=== PATIENT | female | born 1935 | race Caucasian/White ===

== ENCOUNTER 2017-05-24 05:56 | Day surgery (SDC) | payer OTHER, BC ==
[2017-05-19 17:13] VITALS: BMI 24.5
[2017-05-24] MEDS: GENTAMICIN SULFATE 0.3% OPHTHALMIC (EYE DROPS) 5ML BOTTLE ONE ×5 (06:50→07:10)
[2017-05-24] MEDS: CYCLOPENTOLATE HCL 1% OPHTH SOLN 2 ML BOTTLE ONE ×5 (06:50→07:10)
[2017-05-24] MEDS: FLURBIPROFEN 0.03% OPHTH SOLN 2.5 ML BOTTLE ONE ×4 (06:50→07:05)
[2017-05-24] MEDS: PHENYLEPHRINE 2.5% OPHTH SOLN 15 ML BOTTLE ONE ×5 (06:50→07:10)
[2017-05-24] MEDS: TROPICAMIDE 1% OPHTH SOLN 15 ML BOTTLE ONE ×5 (06:50→07:10)
[2017-05-24] MEDS ORDERED: FLURBIPROFEN 0.03% OPHTH SOLN 2.5 ML BOTTLE OD ONE (07:10)
[2017-05-24] MEDS ORDERED: BETAXOLOL HCL 0.25% OPHTHALMIC 10 ML DROPSBTL ONE (07:10)
[2017-05-24] MEDS ORDERED: TETRACAINE 0.5% OPHTH SOLN 2 ML BOTTLE ONE (07:11)
[2017-05-24] MEDS ORDERED: BUPIVACAINE HCL/PF 0.5% (5MG/ML) 10 ML VIAL ONE (07:11)
[2017-05-24] MEDS ORDERED: LIDOCAINE HCL 2% JELLY 10 ML CARTRIDGE ONE (07:11)
[2017-05-24] MEDS ORDERED: LIDOCAINE HCL/PF 2% SDV 5ML VIAL ONE (07:11)
[2017-05-24] MEDS ORDERED: POVIDONE-IODINE 5% OPHTHALMIC PREP 30 ML SOLUTION ONE (07:11)
[2017-05-24] MEDS ORDERED: ACETYLCHOLINE 1:100 INTRA-OCUL 20 MG/2 ML KIT ONE (07:11)
[2017-05-24] MEDS ORDERED: NEO/POLYMYX B SULF/DEXAMETH OPHTHALMIC 5ML BOTTLE ONE (07:11)
[2017-05-24] MEDS ORDERED: GENTAMICIN SULFATE 0.3% OPHTHALMIC (EYE DROPS) 5ML BOTTLE OD SCH (08:00)
[2017-05-24] MEDS ORDERED: PHENYLEPHRINE 2.5% OPHTH SOLN 15 ML BOTTLE OD SCH (08:00)
[2017-05-24] MEDS ORDERED: TROPICAMIDE 1% OPHTH SOLN 15 ML BOTTLE OD SCH (08:00)
[2017-05-24] MEDS ORDERED: CYCLOPENTOLATE HCL 1% OPHTH SOLN 2 ML BOTTLE OD SCH (08:00)
[2017-05-24] MEDS ORDERED: FLURBIPROFEN 0.03% OPHTH SOLN 2.5 ML BOTTLE OD SCH (08:00)
[2017-05-24] MEDS ORDERED: PROPOFOL 20 ML ONE (08:04)
[2017-05-24] MEDS ORDERED: MIDAZOLAM HCL 2 MG/2 ML SINGLE DOSE VIAL ONE (08:05)
[2017-05-24] MEDS ORDERED: TROPICAMIDE 1% OPHTH SOLN 15 ML BOTTLE OP SCH (09:00)
[2017-05-24] MEDS ORDERED: FLURBIPROFEN 0.03% OPHTH SOLN 2.5 ML BOTTLE OP SCH (09:00)
[2017-05-24] MEDS ORDERED: GENTAMICIN SULFATE 0.3% OPHTHALMIC (EYE DROPS) 5ML BOTTLE OP SCH (09:00)
[2017-05-24] MEDS ORDERED: CYCLOPENTOLATE HCL 1% OPHTH SOLN 2 ML BOTTLE OP SCH (09:00)
[2017-05-24] MEDS ORDERED: PHENYLEPHRINE 2.5% OPHTH SOLN 15 ML BOTTLE OP SCH (09:00)
[2017-05-24 09:51] VITALS: BP 135/69; PULSE 70; TEMP 98.1
--- NOTE | 2017-05-24 14:47 | OP ---
DATE OF OPERATION: 05/24/2017 PREOPERATIVE DIAGNOSIS: Cataract, right eye. POSTOPERATIVE DIAGNOSIS: Cataract, right eye. PROCEDURE: Cataract extraction via phacoemulsification with insertion of posterior chamber lens implant, right eye. ANESTHESIA: Regional with sedation. SURGEON: Giancarlo Montemayor MD BEAUTY OPERATOR APPRENTICE: Yashira Marie MD ESTIMATED BLOOD LOSS: Less than 1 mL. SPECIMENS: None. COMPLICATIONS: None. DESCRIPTION OF PROCEDURE: The patient was identified in the holding area. After all risks, benefits, and alternatives were explained to the patient, informed consent was obtained. The right eye was marked with a marking pen. The patient entered the operating room on an eye stretcher. After a formal timeout was performed, a 3-mL injection of equal parts 2% lidocaine with epinephrine and 0.5% Marcaine was given around the right eye. The right eye was then prepped and draped in the usual sterile fashion. An eyelid speculum was placed beneath the eyelids of the right eye. A superotemporal paracentesis incision was created using 15-degree blade. Viscoelastic was then injected into the anterior chamber. A 2.4-mm keratome blade was then used to make an inferotemporal incision. A 360-degree, continuous curvilinear capsulorrhexis was then created using bent cystotome and Utrata forceps. Hydrodissection was performed using balanced saline solution on a cannula. Phacoemulsification was introduced to disassemble and remove the nucleus in its entirety. Irrigation/aspiration was then used to remove any remaining cortical material from the eye. The capsular bag was then refilled using viscoelastic. An Dick model SN60WF with a power of 28.0 diopters, serial number [id number], was inspected and found to be defect free and injected into the capsular bag. Irrigation/aspiration was then used to remove any remaining viscoelastic from the eye. The anterior chamber was refilled using balanced saline solution. Intracameral injections of Miochol and Miostat were then given to the right eye, and the pupil came down and was round. All wounds were hydrated with balanced saline solution and noted to be watertight. The anterior chamber was deep. There was a red reflex present. The eye had an adequate pressure, and the lens was perfectly centered in the capsular bag. The topical antibiotic eye drops and ointment were then administered to the right eye. The eyelid speculum was removed from the right eye. The right eye was patched and shielded. The patient tolerated the procedure well and left the operating room in stable condition to follow up in the eye clinic tomorrow morning at 9:00. GIANCARLO MONTEMAYOR M.D. [id number]
== END 2017-05-24 10:03 | disposition home or self-care (01) ==
LOC: FASU 05:56
PROVIDERS: ATTEND Ophthalmology
PROC: 08RK3JZ Replacement of Left Lens with Synthetic Substitute, Percutaneous Approach (ICD-10-PCS; principal; 2017-05-24 08:21)
DX: H26.9 Unspecified cataract (principal)

== ENCOUNTER 2017-06-07 06:20 | Day surgery (SDC) | payer OTHER, BC ==
[2017-06-03 11:19] VITALS: BMI 24.5
[2017-06-07] MEDS: TROPICAMIDE 1% OPHTH SOLN 15 ML BOTTLE ONE ×5 (07:25→07:45)
[2017-06-07] MEDS: FLURBIPROFEN 0.03% OPHTH SOLN 2.5 ML BOTTLE ONE ×5 (07:25→07:45)
[2017-06-07] MEDS: PHENYLEPHRINE 2.5% OPHTH SOLN 15 ML BOTTLE ONE ×5 (07:25→07:45)
[2017-06-07] MEDS: CYCLOPENTOLATE HCL 1% OPHTH SOLN 2 ML BOTTLE ONE ×5 (07:25→07:45)
[2017-06-07] MEDS: GENTAMICIN SULFATE 0.3% OPHTHALMIC (EYE DROPS) 5ML BOTTLE ONE ×5 (07:25→07:45)
[2017-06-07] MEDS ORDERED: BETAXOLOL HCL 0.25% OPHTHALMIC 10 ML DROPSBTL ONE (07:41)
[2017-06-07] MEDS ORDERED: BACITRACIN/POLYMYXIN OPH OINT 3.5 GM TUBE ONE (07:41)
[2017-06-07] MEDS ORDERED: TETRACAINE 0.5% OPHTH SOLN 2 ML BOTTLE ONE (07:41)
[2017-06-07] MEDS ORDERED: LIDOCAINE HCL/PF 2% SDV 5ML VIAL ONE (07:41)
[2017-06-07] MEDS ORDERED: ACETYLCHOLINE 1:100 INTRA-OCUL 20 MG/2 ML KIT ONE (07:42)
[2017-06-07] MEDS ORDERED: BUPIVACAINE HCL/PF 0.5% (5MG/ML) 10 ML VIAL ONE (07:42)
[2017-06-07] MEDS ORDERED: NEO/POLYMYX B SULF/DEXAMETH OPHTHALMIC 5ML BOTTLE ONE ×2 (07:42→09:04)
[2017-06-07] MEDS ORDERED: EPINEPHrine 1:1,000 1 MG/1 ML - 30ML VIAL (INJECTION) ONE (07:51)
[2017-06-07] MEDS ORDERED: PROPOFOL 20 ML ONE ×3 (07:55)
[2017-06-07] MEDS ORDERED: EPINEPHrine/PF 1 MG/1 ML (1:1,000) AMPULE ONE (07:55)
[2017-06-07] MEDS ORDERED: SUCCINYLCHOLINE CHLORIDE 200 MG/10 ML VIAL ONE (07:55)
[2017-06-07] MEDS ORDERED: ePHEDrine SULFATE 50 MG/1 ML AMPULE ONE (07:56)
[2017-06-07] MEDS ORDERED: MIDAZOLAM HCL 2 MG/2 ML SINGLE DOSE VIAL ONE (08:11)
[2017-06-07] MEDS ORDERED: POVIDONE-IODINE 5% OPHTHALMIC PREP 30 ML SOLUTION ONE (09:04)
[2017-06-07] MEDS ORDERED: LACTATED RINGERS SOLUTION 1,000 ML IV SCH (09:15)
[2017-06-07] MEDS ORDERED: ACETAMINOPHEN 325 MG TABLET (FP) PO PRN ×2 (09:24→09:57)
--- NOTE | 2017-06-07 09:42 | OP ---
DATE OF OPERATION: 06/07/2017 PREOPERATIVE DIAGNOSIS: Cataract, left eye. POSTOPERATIVE DIAGNOSIS: Cataract, left eye. PROCEDURE PERFORMED: Cataract extraction via phacoemulsification with insertion of posterior chamber lens implant, left eye. SURGEON: Giancarlo Montemayor M.D. FAN BLADE TRUER: Yashira Marie M.D. ANESTHESIA: Regional sedation. ESTIMATED BLOOD LOSS: Less than 1 mL. COMPLICATIONS: None. SPECIMENS: None. DESCRIPTION OF PROCEDURE: The patient was identified in the holding area. After all risks, benefits and alternatives were explained to the patient, informed consent was obtained. The left eye was marked with a marking pen. The patient entered the operating room on an Eye Stretcher. After a formal time-out was performed, a 3-mL injection of equal parts of 2% lidocaine with epinephrine and 0.5% Marcaine was given around the left eye. The left eye was then prepped and draped in the usual sterile fashion. An eyelid speculum was placed between the eyelids of the left eye. An infratemporal incision was created using a 15-degree blade. Viscoelastic was then injected into the anterior chamber. A 2.5 keratome blade was then used to make a superotemporal incision. A 360-degree continuous curvilinear capsulorrhexis was then created using a bent cystotome and Utrata forceps. Hydrodissection was performed using bacitracin-saline solution on a cannula. Phacoemulsification was introduced removal of the nucleus in its entirety. Irrigation/aspiration was then used to remove any remaining cortical material from the eye. An Dick model SN60WF with a power of 27.0 diopters, serial number [id number], was inspected and found to be defect free. The capsular bag was then filled with viscoelastic. The lens was inspected again and found to be defect free, and injected into the capsular bag. Irrigation-aspiration was then used to remove any remaining viscoelastic from the eye. The anterior chamber was then reformed using bacitracin-saline solution. Intracameral injections of Miochol and Monistat were then administered, and the pupil came down and was round. All wounds were hydrated with bacitracin-saline solution and noted to be watertight. Upon inspection, the lens was perfectly centered in the capsular bag. There was a red reflex present. The anterior chamber was deep and the eye had adequate pressure. The eye was given topical antibiotic eye drops and ointment. The speculum was then removed from the left eye. The left eye was patched and shielded. The patient tolerated the procedure well and left the operating room in stable condition. She is to follow up with me in the clinic tomorrow morning at 9 o'clock. GIANCARLO MONTEMAYOR M.D. [id number]
[2017-06-07 09:49] VITALS: BP 135/67; PULSE 61; TEMP 98
[2017-06-07] MEDS ORDERED: ONDANSETRON 4 MG/2 ML VIAL IVPUSH PRN (09:59)
== END 2017-06-07 10:00 | disposition home or self-care (01) ==
LOC: FASU 06:20
PROVIDERS: ATTEND Ophthalmology
PROC: 08RK3JZ Replacement of Left Lens with Synthetic Substitute, Percutaneous Approach (ICD-10-PCS; principal; 2017-06-07 08:36)
DX: H26.8 Other specified cataract (principal)

== ENCOUNTER 2022-10-05 04:11 | Inpatient (IN) | payer OTHER ==
[2022-10-05] MEDS ORDERED: ACETAMINOPHEN 1000 MG/100 ML BAG IVPB ONE ×2 (05:45→18:33)
[2022-10-05] MEDS ORDERED: FAMOTIDINE 20 MG/50 ML IVPB 20 MG/50 ML MG IVPB ONE ×2 (05:45→06:11)
[2022-10-05] MEDS ORDERED: ACETAMINOPHEN INJECTION 100 ML IVPB ONE ×2 (06:10→20:08)
[2022-10-05 06:21] LABS: BASO % 0.1 % (0-2.0); EOS % 0.1 % (0-4.5); HEMATOCRIT 36.7 % (32.4-45.2); HEMOGLOBIN 12.6 GM/dL (10.7-15.3); MCH 28.5 pg (25.7-33.7); MCHC 34.2 g/dl (32.0-36.0); MEAN CELL VOLUME 83.2 fl (80-96); MEAN PLT VOLUME 7.3 fl (7.5-11.1); MONO % 4.5 % (3.8-10.2); NEUT % 79.3 % (42.8-82.8); PLATELET COUNT 255 10^3/uL (134-434); RBC 4.42 M/mm3 (3.60-5.2); RDW 13.6 % (11.6-15.6); WHITE BLOOD COUNT 7.6 K/mm3 (4.0-10.0)
[2022-10-05 06:27] LABS: INR 1.18 (0.83-1.09); PROTHROMBIN TIME (PATIENT) 13.6 SEC (9.7-13.0)
[2022-10-05 06:41] LABS: ALBUMIN 2.7 g/dl (3.4-5.0); CALCIUM 8.7 mg/dL (8.5-10.1)
[2022-10-05 06:42] LABS: BLOOD UREA NITROGEN 9.1 mg/dL (7-18); MAGNESIUM 1.9 mg/dL (1.8-2.4)
[2022-10-05 06:42] LABS: EPI CELLS 2 /uL (0-25.1); HYALINE CASTS 0 /uL (0-3.1); PH,URINE 7.5 (5.0-8.0); URINE APPEARANCE CLEAR; URINE BACTERIA 56 /uL (0-1359); URINE BILIRUBIN NEGATIVE (NEGATIVE); URINE COLOR YELLOW; URINE GLUCOSE (UA) NEGATIVE (NEGATIVE); URINE KETONE TRACE (NEGATIVE); URINE LEUK ESTERASE TRACE (NEGATIVE); URINE NITRITE NEGATIVE (NEGATIVE); URINE PROTEIN TRACE (NEGATIVE); URINE RBC 78 /uL (0-23.9); URINE UROBILINOGEN 0.2 mg/dL (0.2-1.0); URINE WBC 4 /uL (0-25.8)
[2022-10-05] MEDS ORDERED: SODIUM CHLORIDE 0.9% 500 ML INFUS.BAG IV ONE (06:43)
[2022-10-05 06:44] LABS: CREATININE 0.6 mg/dL (0.55-1.3)
[2022-10-05 06:46] LABS: BILIRUBIN,TOTAL 0.7 mg/dL (0.2-1); TOT PROT 6.9 g/dl (6.4-8.2)
[2022-10-05 08:18] LABS: URINE CRYSTALS NEGATIVE /hpf
[2022-10-05] MEDS ORDERED: ACETAMINOPHEN 500 MG TABLET (FP) PO PRN (22:40)
[2022-10-06 08:13] LABS: BASO % 0.8 % (0-2.0); HEMATOCRIT 30.1 % (32.4-45.2); HEMOGLOBIN 10.1 GM/dL (10.7-15.3); LYMPH % 40.3 % (8-40); MCH 28.2 pg (25.7-33.7); MCHC 33.6 g/dl (32.0-36.0); MEAN CELL VOLUME 83.8 fl (80-96); MEAN PLT VOLUME 7.3 fl (7.5-11.1); MONO % 7.5 % (3.8-10.2); NEUT % 49.4 % (42.8-82.8); PLATELET COUNT 219 10^3/uL (134-434); RBC 3.59 M/mm3 (3.60-5.2); RDW 13.4 % (11.6-15.6); WHITE BLOOD COUNT 4.9 K/mm3 (4.0-10.0)
[2022-10-06 08:27] LABS: BLOOD UREA NITROGEN 6.4 mg/dL (7-18); CALCIUM 8.3 mg/dL (8.5-10.1)
[2022-10-06 08:29] LABS: CREATININE 0.5 mg/dL (0.55-1.3); PHOSPHOROUS 3.3 mg/dL (2.5-4.9)
[2022-10-06 08:30] LABS: BILIRUBIN,TOTAL 0.4 mg/dL (0.2-1); TOT PROT 5.3 g/dl (6.4-8.2)
[2022-10-06 08:34] LABS: ALBUMIN 2.1 g/dl (3.4-5.0)
[2022-10-06] MEDS: ENOXAPARIN NA (PORCINE) 40 MG/0.4 ML DISP.SYRIN SQ SCH (10:41)
[2022-10-06] MEDS ORDERED: MECLIZINE HCL 12.5 MG TABLET PO PRN (11:08)
[2022-10-06] MEDS: SODIUM CHLORIDE 1,000 ML IV SCH ×2 (15:23→20:29)
[2022-10-06] MEDS: POLYETHYLENE GLYCOL (HEALTHYLAX) 3350 17 GM PACKET PO SCH ×2 (15:23→21:44)
[2022-10-06] MEDS ORDERED: ACETAMINOPHEN INJECTION 100 ML IVPB ONE (18:38)
[2022-10-06] MEDS: ACETAMINOPHEN 325 MG TABLET (FP) PO PRN (18:41)
[2022-10-06] MEDS ORDERED: ACETAMINOPHEN 325 MG TABLET (FP) ONE (18:45)
[2022-10-06] MEDS: ATORVASTATIN CA 20 MG TABLET (FP) PO SCH (21:44)
[2022-10-07] MEDS: ACETAMINOPHEN 325 MG TABLET (FP) PO PRN (02:52)
[2022-10-07] MEDS: SODIUM CHLORIDE 1,000 ML IV SCH (02:53)
[2022-10-07] MEDS ORDERED: ACETAMINOPHEN 1000 MG/100 ML BAG IVPB ONE (09:25)
[2022-10-07] MEDS: ASPIRIN COATED 81 MG TABLET.EC PO SCH (09:48)
[2022-10-07] MEDS: ENOXAPARIN NA (PORCINE) 40 MG/0.4 ML DISP.SYRIN SQ SCH (09:50)
[2022-10-07] MEDS: POLYETHYLENE GLYCOL (HEALTHYLAX) 3350 17 GM PACKET PO SCH ×2 (09:50→22:19)
[2022-10-07 14:51] VITALS: BMI 19.3
[2022-10-07] MEDS: PANTOPRAZOLE 20 MG TABLET PO SCH (16:55)
[2022-10-07] MEDS: ATORVASTATIN CA 20 MG TABLET (FP) PO SCH (22:19)
[2022-10-08 10:09] LABS: HEMATOCRIT 34.8 % (32.4-45.2); HEMOGLOBIN 11.7 GM/dL (10.7-15.3); MCH 28.1 pg (25.7-33.7); MCHC 33.6 g/dl (32.0-36.0); MEAN CELL VOLUME 83.4 fl (80-96); MEAN PLT VOLUME 7.1 fl (7.5-11.1); PLATELET COUNT 286 10^3/uL (134-434); RBC 4.18 M/mm3 (3.60-5.2); RDW 13.6 % (11.6-15.6); WHITE BLOOD COUNT 5.6 K/mm3 (4.0-10.0)
[2022-10-08 10:31] LABS: BLOOD UREA NITROGEN 10.6 mg/dL (7-18); CALCIUM 8.5 mg/dL (8.5-10.1)
[2022-10-08 10:34] LABS: CREATININE 0.6 mg/dL (0.55-1.3)
[2022-10-08 10:52] VITALS: RESP 18
[2022-10-08] MEDS: ASPIRIN COATED 81 MG TABLET.EC PO SCH (11:27)
[2022-10-08] MEDS: PANTOPRAZOLE 20 MG TABLET PO SCH (11:27)
[2022-10-08] MEDS: POLYETHYLENE GLYCOL (HEALTHYLAX) 3350 17 GM PACKET PO SCH ×2 (11:27→21:31)
[2022-10-08] MEDS: SODIUM CHLORIDE 1,000 ML IV SCH (15:38)
[2022-10-08] MEDS: ATORVASTATIN CA 20 MG TABLET (FP) PO SCH (21:31)
[2022-10-09] MEDS: SODIUM CHLORIDE 1,000 ML IV SCH (06:13)
[2022-10-09] MEDS: PANTOPRAZOLE 20 MG TABLET PO SCH (09:48)
[2022-10-09] MEDS: ENOXAPARIN NA (PORCINE) 40 MG/0.4 ML DISP.SYRIN SQ SCH (09:48)
[2022-10-09] MEDS: ASPIRIN COATED 81 MG TABLET.EC PO SCH (09:48)
[2022-10-09] MEDS: POLYETHYLENE GLYCOL (HEALTHYLAX) 3350 17 GM PACKET PO SCH (09:49)
[2022-10-09 11:23] LABS: CALCIUM 8.5 mg/dL (8.5-10.1)
[2022-10-09 11:24] LABS: BLOOD UREA NITROGEN 10.7 mg/dL (7-18)
[2022-10-09 11:27] LABS: CREATININE 0.8 mg/dL (0.55-1.3)
[2022-10-09 18:40] VITALS: BP 126/50; PULSE 78; TEMP 97
== END 2022-10-09 11:41 | disposition home or self-care (01) | DRG 384 ==
LOC: JER 04:11 → JERBED 16:00 → J5S 10-06 19:20
PROVIDERS: ADMIT Internal Medicine; ATTEND Internal Medicine
PROC: 0DB98ZX Excision of Duodenum, Via Natural or Artificial Opening Endoscopic, Diagnostic (ICD-10-PCS; 2022-10-08)
PROC: 0DB68ZX Excision of Stomach, Via Natural or Artificial Opening Endoscopic, Diagnostic (ICD-10-PCS; principal; 2022-10-08 11:45)
DX: K25.9 Gastric ulcer, unspecified as acute or chronic, without hemorrhage or perforation (principal); E87.1 Hypo-osmolality and hyponatremia; K55.1 Chronic vascular disorders of intestine; K26.9 Duodenal ulcer, unspecified as acute or chronic, without hemorrhage or perforation; R10.9 Unspecified abdominal pain; R19.7 Diarrhea, unspecified; K44.9 Diaphragmatic hernia without obstruction or gangrene; K29.50 Unspecified chronic gastritis without bleeding; K21.00 Gastro-esophageal reflux disease with esophagitis, without bleeding; E78.5 Hyperlipidemia, unspecified
CPT/HCPCS: 0241U-QW; 36415; 71045-TC-FY; 74174-TC; 74182-TC; 80048; 80053; 81003; 83605; 83690; 83735; 84100; 84484; 85025; 85027; 85610; 85730; 86850; 86900; 86901; 87086; 87186; 88305-TC; 93005; 93010; 97116-GP; 97162-GP; 99285-25; A9579; Q9967

== ENCOUNTER 2023-01-13 04:39 | Day surgery (SDC) | payer OTHER ==
[2023-01-10 15:40] VITALS: BMI 23.8
[2023-01-13 12:30] VITALS: RESP 20; TEMP 97.3
[2023-01-13 13:13] VITALS: BP 138/52; PULSE 71
== END 2023-01-13 13:48 | disposition home or self-care (01) ==
LOC: JASU-ENDO 04:39
PROVIDERS: ATTEND Internal Medicine Gastroenterology
PROC: 0DJD8ZZ Inspection of Lower Intestinal Tract, Via Natural or Artificial Opening Endoscopic (ICD-10-PCS; 2023-01-13)
PROC: 0DBM8ZX Excision of Descending Colon, Via Natural or Artificial Opening Endoscopic, Diagnostic (ICD-10-PCS; principal; 2023-01-13 12:30)
DX: C18.6 Malignant neoplasm of descending colon (principal); Z80.0 Family history of malignant neoplasm of digestive organs
CPT/HCPCS: 88305-TC

== ENCOUNTER 2024-10-04 08:44 | Inpatient (IN) | payer OTHER ==
[2024-10-04 10:06] LABS: BASO % 0.3 % (0-2.0); EOS % 0.1 % (0-4.5); HEMATOCRIT 27.6 % (32.4-45.2); HEMOGLOBIN 8.3 GM/dL (10.7-15.3); LYMPH % 21.9 % (8-40); MCH 22.9 pg (25.7-33.7); MCHC 30.1 g/dl (32.0-36.0); MEAN CELL VOLUME 76.3 fl (80-96); MONO % 5.3 % (3.8-10.2); NEUT % 72.4 % (42.8-82.8); PLATELET COUNT 292 10^3/uL (134-434); RBC 3.62 M/mm3 (3.60-5.2); RDW 20.9 % (11.6-15.6); WHITE BLOOD COUNT 7.3 K/mm3 (4.0-10.0)
[2024-10-04 10:15] LABS: INR 1.12 (0.83-1.09); PROTHROMBIN TIME (PATIENT) 12.6 SEC (9.7-13.0)
[2024-10-04 10:17] LABS: ACTIVATED PTT 26.8 SECONDS (25.2-36.5)
[2024-10-04 10:38] LABS: POTASSIUM 5.2 mmol/L (3.5-5.1)
[2024-10-04 10:40] LABS: CALCIUM 8.7 mg/dL (8.5-10.1)
[2024-10-04 10:41] LABS: ALBUMIN 2.2 g/dl (3.4-5.0); BLOOD UREA NITROGEN 23.7 mg/dL (7-18); MAGNESIUM 2.4 mg/dL (1.8-2.4)
[2024-10-04 10:44] LABS: CREATININE 0.9 mg/dL (0.55-1.3)
[2024-10-04 10:45] LABS: BILIRUBIN,TOTAL 0.4 mg/dL (0.2-1)
[2024-10-04 10:46] LABS: TOT PROT 7.9 g/dl (6.4-8.2)
[2024-10-04 11:16] LABS: ANISOCYTOSIS 2+; MACROCYTOSIS 1+
[2024-10-04 13:45] LABS: POTASSIUM 4.3 mmol/L (3.5-5.1)
[2024-10-04 13:47] LABS: BLOOD UREA NITROGEN 20.4 mg/dL (7-18); CALCIUM 8.4 mg/dL (8.5-10.1)
[2024-10-04 13:51] LABS: CREATININE 0.7 mg/dL (0.55-1.3)
[2024-10-04 13:52] LABS: BILIRUBIN,TOTAL 0.3 mg/dL (0.2-1); TOT PROT 7.3 g/dl (6.4-8.2)
[2024-10-04] MEDS ORDERED: MECLIZINE HCL 12.5 MG TABLET PO PRN (15:09)
[2024-10-04] MEDS: ASPIRIN 81 MG CHEWABLE TABLETS PO SCH (17:00)
[2024-10-04 17:01] VITALS: BMI 19.2
[2024-10-04 18:25] LABS: EPI CELLS 4 /uL (0-25.1); HYALINE CASTS 0 /uL (0-3.1); URINE APPEARANCE CLEAR; URINE BACTERIA 2 /uL (0-1359); URINE BILIRUBIN NEGATIVE (NEGATIVE); URINE COLOR YELLOW; URINE GLUCOSE (UA) NEGATIVE (NEGATIVE); URINE KETONE NEGATIVE (NEGATIVE); URINE LEUK ESTERASE NEGATIVE (NEGATIVE); URINE NITRITE NEGATIVE (NEGATIVE); URINE PROTEIN 1+ (NEGATIVE); URINE RBC 24 /uL (0-23.9); URINE WBC 9 /uL (0-25.8)
[2024-10-04] MEDS ORDERED: ATORVASTATIN CA 20 MG TABLET (FP) PO SCH (22:00)
[2024-10-04] MEDS: ATORVASTATIN CA 40 MG TABLET (FP) PO SCH (22:32)
[2024-10-05] MEDS ORDERED: MECLIZINE HCL 12.5 MG TABLET PO PRN (07:44)
[2024-10-05 07:57] LABS: BASO % 0.3 % (0-2.0); EOS % 0.4 % (0-4.5); HEMATOCRIT 27.9 % (32.4-45.2); HEMOGLOBIN 8.5 GM/dL (10.7-15.3); LYMPH % 31.6 % (8-40); MCHC 30.4 g/dl (32.0-36.0); MEAN CELL VOLUME 75.6 fl (80-96); MEAN PLT VOLUME 6.7 fl (7.5-11.1); MONO % 5.6 % (3.8-10.2); NEUT % 62.1 % (42.8-82.8); PLATELET COUNT 296 10^3/uL (134-434); RBC 3.69 M/mm3 (3.60-5.2); RDW 20.9 % (11.6-15.6); WHITE BLOOD COUNT 6.1 K/mm3 (4.0-10.0)
[2024-10-05 08:04] LABS: POTASSIUM 3.9 mmol/L (3.5-5.1)
[2024-10-05 08:14] LABS: CALCIUM 8.4 mg/dL (8.5-10.1)
[2024-10-05 08:15] LABS: ALBUMIN 2.1 g/dl (3.4-5.0); BLOOD UREA NITROGEN 14.1 mg/dL (7-18); MAGNESIUM 2.2 mg/dL (1.8-2.4)
[2024-10-05 08:16] LABS: BILIRUBIN,TOTAL 0.5 mg/dL (0.2-1); TOT PROT 7.5 g/dl (6.4-8.2)
[2024-10-05 08:17] LABS: CREATININE 0.6 mg/dL (0.55-1.3)
[2024-10-05] MEDS ORDERED: ENOXAPARIN NA (PORCINE) 40 MG/0.4 ML DISP.SYRIN SQ SCH (10:00)
[2024-10-05] MEDS ORDERED: MULTIVITAMINS (DAILY MVI) TABLET (FP) PO SCH (10:00)
[2024-10-05] MEDS: MULTIVITAMINS (DAILY MVI) TABLET (FP) PO SCH (11:10)
[2024-10-05] MEDS: ASPIRIN 81 MG CHEWABLE TABLETS PO SCH (11:10)
[2024-10-05] MEDS: PANTOPRAZOLE 40 MG TABLET PO SCH (11:10)
[2024-10-05] MEDS: ENOXAPARIN NA (PORCINE) 40 MG/0.4 ML DISP.SYRIN SQ SCH (11:11)
[2024-10-05] MEDS: QUEtiapine FUMARATE 25 MG TABLET PO SCH (21:19)
[2024-10-05] MEDS: ATORVASTATIN CA 40 MG TABLET (FP) PO SCH (21:19)
[2024-10-06 07:20] LABS: POTASSIUM 3.9 mmol/L (3.5-5.1)
[2024-10-06 07:21] LABS: BASO % 0.3 % (0-2.0); EOS % 0.6 % (0-4.5); HEMATOCRIT 26.7 % (32.4-45.2); HEMOGLOBIN 8.1 GM/dL (10.7-15.3); MCH 22.9 pg (25.7-33.7); MCHC 30.3 g/dl (32.0-36.0); MEAN CELL VOLUME 75.6 fl (80-96); MEAN PLT VOLUME 6.8 fl (7.5-11.1); NEUT % 62.1 % (42.8-82.8); PLATELET COUNT 285 10^3/uL (134-434); RBC 3.53 M/mm3 (3.60-5.2); WHITE BLOOD COUNT 8.1 K/mm3 (4.0-10.0)
[2024-10-06 07:23] LABS: ALBUMIN 2.1 g/dl (3.4-5.0); CALCIUM 8.5 mg/dL (8.5-10.1)
[2024-10-06 07:26] LABS: CREATININE 0.8 mg/dL (0.55-1.3)
[2024-10-06 07:29] LABS: BILIRUBIN,TOTAL 0.6 mg/dL (0.2-1); TOT PROT 7.2 g/dl (6.4-8.2)
[2024-10-06] MEDS: FERROUS SO4 325 MG TABLET (FP) PO SCH ×2 (09:38→21:23)
[2024-10-06] MEDS: IRON SUCROSE INJECTION 200 MG in SODIUM CHLORIDE 100 ML IVPB ONE (17:00)
[2024-10-06] MEDS ORDERED: ACETAMINOPHEN INJECTION 100 ML ONE (18:33)
[2024-10-06] MEDS: ACETAMINOPHEN 1000 MG/100 ML BAG IVPB ONE (18:43)
[2024-10-06] MEDS: SODIUM CHLORIDE 500 ML IV STA (18:44)
[2024-10-06] MEDS: DEXTROSE 5%-NORMAL SALINE 1,000 ML IV SCH (19:59)
[2024-10-06] MEDS: PANTOPRAZOLE SODIUM 40 MG VIAL IVPUSH ONE (19:59)
[2024-10-06] MEDS: SENNOSIDES 8.6MG TABLET (FP) PO SCH (21:23)
[2024-10-06 21:35] LABS: HEMATOCRIT 22.1 % (32.4-45.2); MCH 22.9 pg (25.7-33.7); MCHC 30.6 g/dl (32.0-36.0); MEAN CELL VOLUME 74.7 fl (80-96); MEAN PLT VOLUME 6.6 fl (7.5-11.1); PLATELET COUNT 259 10^3/uL (134-434); RBC 2.96 M/mm3 (3.60-5.2); RDW 20.9 % (11.6-15.6); WHITE BLOOD COUNT 6.9 K/mm3 (4.0-10.0)
[2024-10-06 21:41] LABS: HEMOGLOBIN 6.8 GM/dL (10.7-15.3)
[2024-10-07 07:37] LABS: POTASSIUM 3.7 mmol/L (3.5-5.1)
[2024-10-07 07:43] LABS: CALCIUM 7.8 mg/dL (8.5-10.1)
[2024-10-07 07:44] LABS: BLOOD UREA NITROGEN 20.8 mg/dL (7-18); MAGNESIUM 2.2 mg/dL (1.8-2.4)
[2024-10-07 07:47] LABS: BILIRUBIN,TOTAL 0.6 mg/dL (0.2-1); CREATININE 0.8 mg/dL (0.55-1.3); PHOSPHOROUS 3.6 mg/dL (2.5-4.9)
[2024-10-07 07:48] LABS: TOT PROT 6.1 g/dl (6.4-8.2)
[2024-10-07 07:53] LABS: ALBUMIN 1.7 g/dl (3.4-5.0)
[2024-10-07 07:55] LABS: HEMATOCRIT 28.5 % (32.4-45.2); HEMOGLOBIN 8.7 GM/dL (10.7-15.3); MCH 24.6 pg (25.7-33.7); MCHC 30.4 g/dl (32.0-36.0); MEAN CELL VOLUME 80.8 fl (80-96); PLATELET COUNT 230 10^3/uL (134-434); RBC 3.53 M/mm3 (3.60-5.2); WHITE BLOOD COUNT 7.8 K/mm3 (4.0-10.0)
[2024-10-07 09:29] LABS: EPI CELLS 4 /uL (0-25.1); HYALINE CASTS 1 /uL (0-3.1); PH,URINE 5.5 (5.0-8.0); URINE APPEARANCE CLOUDY; URINE BACTERIA 8290 /uL (0-1359); URINE BILIRUBIN NEGATIVE (NEGATIVE); URINE COLOR DK YELLOW; URINE GLUCOSE (UA) NEGATIVE (NEGATIVE); URINE KETONE TRACE (NEGATIVE); URINE LEUK ESTERASE 1+ (NEGATIVE); URINE NITRITE POSITIVE (NEGATIVE); URINE PROTEIN 1+ (NEGATIVE); URINE UROBILINOGEN 0.2 mg/dL (0.2-1.0); URINE WBC 302 /uL (0-25.8)
[2024-10-07 09:50] LABS: URINE RBC 25 /uL (0-23.9)
[2024-10-07] MEDS: AMPICILLIN NA/SULBACTAM NA 3 GM in SODIUM CHLORIDE 100 ML IVPB SCH (10:35)
[2024-10-07] MEDS: PANTOPRAZOLE SODIUM 40 MG VIAL IVPUSH SCH (10:35)
[2024-10-08] MEDS: ACETAMINOPHEN 325 MG TABLET (FP) PO PRN (06:36)
[2024-10-08 08:01] LABS: BASO % 0.3 % (0-2.0); EOS % 0.7 % (0-4.5); HEMATOCRIT 26.3 % (32.4-45.2); HEMOGLOBIN 8.1 GM/dL (10.7-15.3); LYMPH % 34.9 % (8-40); MCH 24.6 pg (25.7-33.7); MCHC 30.6 g/dl (32.0-36.0); MEAN CELL VOLUME 80.4 fl (80-96); MEAN PLT VOLUME 6.8 fl (7.5-11.1); MONO % 5.7 % (3.8-10.2); NEUT % 58.4 % (42.8-82.8); PLATELET COUNT 211 10^3/uL (134-434); RBC 3.27 M/mm3 (3.60-5.2); RDW 21.2 % (11.6-15.6); WHITE BLOOD COUNT 6.9 K/mm3 (4.0-10.0)
[2024-10-08 08:10] LABS: POTASSIUM 3.3 mmol/L (3.5-5.1)
[2024-10-08 08:29] LABS: CALCIUM 7.4 mg/dL (8.5-10.1)
[2024-10-08 08:30] LABS: BLOOD UREA NITROGEN 14.4 mg/dL (7-18)
[2024-10-08 08:33] LABS: CREATININE 0.7 mg/dL (0.55-1.3); PHOSPHOROUS 1.9 mg/dL (2.5-4.9)
[2024-10-08 09:41] LABS: ANISOCYTOSIS 2+; MACROCYTOSIS 1+
[2024-10-08] MEDS ORDERED: KCL 20 MEQ PREMIX BAG 20 MEQ/100 ML INFUS.BAG IVPB SCH (09:45)
[2024-10-08] MEDS: KCL 10 MEQ IVPB 10 MEQ/100 ML INFUS.BAG IVPB SCH (10:03)
[2024-10-08] MEDS: NAPH,MB-DB/K PH,MBDB POWDER PACKET PO ONE (10:03)
[2024-10-09 07:53] LABS: HEMATOCRIT 27.1 % (32.4-45.2); HEMOGLOBIN 8.1 GM/dL (10.7-15.3); MCH 24.4 pg (25.7-33.7); MCHC 30.1 g/dl (32.0-36.0); MEAN PLT VOLUME 6.8 fl (7.5-11.1); PLATELET COUNT 208 10^3/uL (134-434); RBC 3.34 M/mm3 (3.60-5.2); RDW 21.7 % (11.6-15.6); WHITE BLOOD COUNT 6.7 K/mm3 (4.0-10.0)
[2024-10-09 07:56] LABS: POTASSIUM 3.5 mmol/L (3.5-5.1)
[2024-10-09 08:07] LABS: CALCIUM 7.3 mg/dL (8.5-10.1)
[2024-10-09 08:08] LABS: BLOOD UREA NITROGEN 12.8 mg/dL (7-18); MAGNESIUM 1.9 mg/dL (1.8-2.4)
[2024-10-09 08:10] LABS: CREATININE 0.5 mg/dL (0.55-1.3)
[2024-10-09 08:11] LABS: BILIRUBIN,TOTAL 0.4 mg/dL (0.2-1); TOT PROT 5.3 g/dl (6.4-8.2)
[2024-10-09 08:12] LABS: ALBUMIN 1.3 g/dl (3.4-5.0)
[2024-10-09] MEDS: NAPH,MB-DB/K PH,MBDB POWDER PACKET PO ONE (09:59)
[2024-10-09] MEDS: MAGNESIUM 1GM/D5W - 1 GM/100 ML IVPB IVPB ONE (17:10)
[2024-10-09] MEDS: POTASSIUM PHOSPHATE 30 MM in SODIUM CHLORIDE 250 ML IVPB ONE (18:21)
[2024-10-10 07:55] LABS: HEMATOCRIT 28.9 % (32.4-45.2); HEMOGLOBIN 8.7 GM/dL (10.7-15.3); MCH 24.8 pg (25.7-33.7); MEAN CELL VOLUME 82.6 fl (80-96); PLATELET COUNT 187 10^3/uL (134-434); RDW 22.9 % (11.6-15.6); WHITE BLOOD COUNT 6.7 K/mm3 (4.0-10.0)
[2024-10-10 08:14] LABS: POTASSIUM 3.9 mmol/L (3.5-5.1)
[2024-10-10 08:32] LABS: CALCIUM 7.5 mg/dL (8.5-10.1)
[2024-10-10 08:33] LABS: BLOOD UREA NITROGEN 16.2 mg/dL (7-18); MAGNESIUM 2.1 mg/dL (1.8-2.4)
[2024-10-10 08:34] LABS: ALBUMIN 1.4 g/dl (3.4-5.0)
[2024-10-10 08:36] LABS: CREATININE 0.6 mg/dL (0.55-1.3)
[2024-10-10 08:37] LABS: BILIRUBIN,TOTAL 0.6 mg/dL (0.2-1); TOT PROT 5.5 g/dl (6.4-8.2)
[2024-10-10 08:38] LABS: PHOSPHOROUS 3.2 mg/dL (2.5-4.9)
[2024-10-10] MEDS: oxyCODONE HCL 5 MG TABLET PO ONE (14:18)
[2024-10-11] MEDS ORDERED: ACETAMINOPHEN 1000 MG/100 ML BAG IVPB PRN ×2 (10:25→15:28)
[2024-10-11] MEDS: ACETAMINOPHEN 1000 MG/100 ML BAG IVPB ONE (10:27)
[2024-10-11] MEDS ORDERED: ARTIFICIAL TEARS OPHTHALMIC DROPS OU PRN (16:16)
[2024-10-11] MEDS: POLYMYXIN B SULFATE/TMP 10 ML OPHTHALMIC SOLUTION OS SCH (17:45)
[2024-10-11 21:42] VITALS: BP 124/83; PULSE 103; RESP 22; TEMP 97.6
[2024-10-11] MEDS ORDERED: LACTOBACILLUS ACIDOPHILUS 1 TABLET PO SCH (22:00)
== END 2024-10-11 21:00 | DRG 64 ==
LOC: JER 08:44 → JERBED 13:45 → J5S 15:27 → J2W 10-05 00:53 → OBSVTOIN 10-06 11:46
PROVIDERS: ADMIT Student in an Organized Health Care Education/Training Program; ATTEND Internal Medicine
DX: I63.89 Other cerebral infarction (principal); E43 Unspecified severe protein-calorie malnutrition; C18.9 Malignant neoplasm of colon, unspecified; N39.0 Urinary tract infection, site not specified; K92.2 Gastrointestinal hemorrhage, unspecified; Z68.1 Body mass index [BMI] 19.9 or less, adult; E11.9 Type 2 diabetes mellitus without complications; I10 Essential (primary) hypertension; E78.5 Hyperlipidemia, unspecified; I25.10 Atherosclerotic heart disease of native coronary artery without angina pectoris; D50.9 Iron deficiency anemia, unspecified; M41.9 Scoliosis, unspecified; R29.898 Other symptoms and signs involving the musculoskeletal system; M06.9 Rheumatoid arthritis, unspecified; R41.82 Altered mental status, unspecified; H10.89 Other conjunctivitis; R50.9 Fever, unspecified; R42 Dizziness and giddiness; R51.9 Headache, unspecified; Z96.641 Presence of right artificial hip joint
CPT/HCPCS: 0241U-QW; 36415; 36430; 70450-TC; 70496-TC; 70551-TC; 71045-TC-FY; 72141-TC; 73030-TC-LT-FY; 80048; 80053; 80061; 81003; 82607; 82728; 82746; 82962; 83036; 83540; 83550; 83735; 84100; 84439; 84443; 84484; 85025; 85027; 85045; 85610; 85730; 86922; 87040; 87086; 87481; 87635; 93005; 93010; 93306-TC; 93880-TC; 97116-GP; 97161-GP; 99285-25; G0378; J0131; J1756; P9058; Q9967